=== PATIENT | female | born 1990 | race African-American/Black ===

== ENCOUNTER 2024-05-24 08:56 | Emergency (ER) | payer MEDICAID ==
[~2024-05-24] VITALS: Ht 170.2 cm; Wt 80.0 kg
[2024-05-24 09:00] VITALS: BP 153/92; PULSE 92; RESP 18; TEMP 37; O2SAT 100
[2024-05-24 10:31] LABS: BASOPHILS % 0.7 % (0.0-2.0); EOSINOPHILS % 2.7 % (0.0-5.0); HEMATOCRIT. 39.7 % (36.0-48.0); HEMOGLOBIN. 12.7 g/dL (12.0-16.0); LYMPHOCYTES % 39.9 % (20.0-50.0); MEAN CORPUSCULAR HEMOGLOBIN 27.3 pg (28.0-32.0); MEAN CORPUSCULAR HGB CONC 31.9 g/dL (31.0-37.0); MEAN CORPUSCULAR VOLUME 85.5 fL (81.0-99.0); MONOCYTES % 5.6 % (2.0-8.0); NEUTROPHILS % 51.1 % (40.0-76.0); PLATELET 258 x1000/uL (130-400); RED BLOOD CELL COUNT 4.65 mill/uL (4.2-5.4); RED CELL DISTRIBUTION WIDTH 14.8 % (11.6-14.6); WHITE BLOOD COUNT 4.6 x1000/uL (4.5-11.0)
[2024-05-24 10:40] LABS: CARBON DIOXIDE 31 mEq/L (21-32); CHLORIDE 104 mEq/L (98-107); POTASSIUM 3.7 mEq/L (3.5-5.1); SODIUM 140 mEq/L (136-145)
[2024-05-24 10:46] LABS: CREATININE 0.9 mg/dL (0.6-1.0); GLUCOSE 101 mg/dL (70-105); UREA NITROGEN BLOOD 9 mg/dL (9-23)
[2024-05-24 10:51] LABS: HCG SCREEN NEGATIVE
== END 2024-05-24 12:30 | disposition home or self-care (01) ==
LOC: ER 08:56
DX: F41.9 Anxiety disorder, unspecified (principal); R42 Dizziness and giddiness; I10 Essential (primary) hypertension
CPT/HCPCS: 36415; 71045; 80048; 84703; 85025; 99284

== ENCOUNTER 2024-11-07 16:16 | Emergency (ER) | payer OTHER ==
[~2024-11-07] VITALS: Ht 170.2 cm; Wt 125.0 kg
[2024-11-07 16:36] VITALS: O2SAT 98
[2024-11-07 18:00] VITALS: BP 144/82; PULSE 91; RESP 18; TEMP 36.9; O2SAT 98
== END 2024-11-07 18:30 | disposition left against medical advice (07) ==
LOC: ER 16:16
DX: R11.2 Nausea with vomiting, unspecified (principal); R51.9 Headache, unspecified; Z53.21 Procedure and treatment not carried out due to patient leaving prior to being seen by health care provider